=== PATIENT | male | born 1985 | race Two or more races ===

== ENCOUNTER 2016-10-01 23:51 | Observation (INO) | payer OTHER ==
--- NOTE | ~2016-10-01 | CT2 ---
[facility] A Service of [facility] RADIOLOGY TEXT RESULTS PATIENT: JESUS MCLEOD LOCATION: C4 473-01 : 84 UNIT #: [id number] AGE: [address]: Isra Beltran SEX: M ORDER DR: [id number] [facility] [address] [facility] [address]. [place], [place] [address] [id number] MR#: [id number] Acc #: [id number] NAME: JESUS MCLEOD : 1985 SEX: M STUDY DATE/TIME: 10/02/2016 3:13 UNIT: CEDOF ROOM: 58867 STUDY DESCRIPTION: CT Abd and Pelv W Cont Attending Physician: Isra Beltran M.D. Ordering Physician: Harinder Main M.D. Primary Care Physician: No Primary Care Physician MEDICAL IMAGING REPORT This report is preliminary unless electronic signature is present EXAMINATION CT abdomen and pelvis with contrast. DATE 10/02/2016 HISTORY Generalized abdominal pain today with nausea and vomiting. COMPARISON None. PROCEDURE 5 mm axial images from lung bases to lesser trochanters after intravenous and enteric contrast administration. Sagittal and coronal reformatted images were obtained. This CT exam was performed with one or more of the following radiation dose reduction techniques: automatic exposure control, adjustment of mA and/or kV according to patient size, and iterative reconstruction. FINDINGS Abdomen findings: The appendix is abnormally thickened with mucosal enhancement and surrounding fat reticulation, consistent with the appearance of the acute appendicitis. No periappendiceal abscess is seen. Lung bases are clear. The liver, gallbladder, spleen, pancreas, adrenals and kidneys are within normal limits. Pelvis findings: Urinary bladder, prostate and rectum are normal. No pelvic adenopathy or free fluid. IMPRESSION 1. Acute appendicitis without evidence of perforation or periappendiceal [facility] A Service [facility] RADIOLOGY TEXT RESULTS PATIENT: JESUS MCELOD LOCATION: C4 473-01 : 84 UNIT #: [id number] AGE: [address]: Isra Beltran SEX: M ORDER DR: abscess at this time. Findings called to the [facility] emergency room at the time of this dictation. Dictated by... Monika Copeland M.D. THIS IS AN ELECTRONICALLY VERIFIED REPORT Monika Copeland M.D. at 10/02/2016 9:55 PM LYNDON/bridgette TD: 10/02/2016 06:55 JOB #: [id number] MEDICAL IMAGING REPORT Page 1 of 1 COPY
--- NOTE | ~2016-10-01 | CO ---
Unit #: [id number] #: [id number] Patient: JESUS MCLEOD [id number] [address] [address] [id number] MR#: [id number] NAME: JESUS MCLEOD ROOM: [facility] Age: 31 Sex: M Admission Date: 10/02/2016 : 1985 Attending Physician: Isra Beltran M.D. Consultation Date: 10/02/2016 CONSULTATION REPORT REASON FOR CONSULTATION 1. Abdominal pain. 2. Acute appendicitis. CONSULTING PHYSICIAN [facility] and [facility] physicians. Thank you very much for asking us to see Mr. Blankenship. HISTORY OF PRESENT ILLNESS He is a 31-year-old [place] male. We spoke with him through call center recruiter, #[id number]. The patient states he may have developed abdominal pain 24 hours ago. It was first diffuse and became more localized in the right lower quadrant. He came to the emergency room for further evaluation. At that time, he had a CT scan performed, which was consistent with acute appendicitis without perforation. No other intraabdominal process was found. He denies any GI bleeding. No or pulmonary symptoms. No fevers or chills. ALLERGIES No known medical allergies. MEDICATIONS Omeprazole. PAST SURGICAL HISTORY None. PAST MEDICAL HISTORY Unremarkable. SOCIAL HISTORY No tobacco or alcohol use. REVIEW OF SYSTEMS Negative except for above. IMMUNIZATION STATUS Unknown. FAMILY HISTORY Noncontributory. PHYSICAL EXAMINATION Unit #: [id number] #: [id number] Patient: JESUS MCLEOD GENERAL: Well-developed, well-nourished, black male. Awake, alert, and oriented. VITAL SIGNS: Temperature 98.5, pulse 68, respirations 18, and blood pressure 122/80. NECK: Supple. No thyromegaly or adenopathy. BACK: No CVA or spinous tenderness. HEENT: Sclerae not icteric. ABDOMEN: Flat, soft, and nontender on the left side, but tender in the right lower quadrant at McBurney point with some guarding, but no rebound or peritoneal signs. EXTREMITIES: No calf tenderness. No erythema. DIAGNOSTIC STUDIES LABORATORY RESULTS: Reveal the patient to have a white count of 11.8, hemoglobin 15.2, and hematocrit 45.3. His CMP showed a sodium of 133, potassium 3.4 with the rest was normal including normal liver function studies. Urinalysis was negative nitrites, negative leukocyte esterase. IMPRESSION A 31-year-old [place]ic male with right lower quadrant pain and acute appendicitis on CT scan of the abdomen and pelvis. We have recommended laparoscopic appendectomy, possible open appendectomy. All the risks and benefits have been fully explained to the patient in detail including the risk of bleeding, infection, an open procedure more extensive or different procedure, transfer, as well as other risks. He understands completely and requests to proceed. Dictated by... Luis Caldwell/loren TD: 10/02/2016 07:47 JOB #: [id number] CC: [facility] CONSULTATION REPORT Page 1 of 1 X Narayan Long MD X CONSULTATION REPORT
--- NOTE | ~2016-10-01 | OR ---
Unit #: [id number] #: [id number] Patient: JESUS MCLEOD [id number] [address] [address] [id number] [place] MR#: [id number] NAME: JESUS MCLEOD ROOM: 473 Date of Procedure: 10/02/2016 Admission Date: 10/02/2016 Surgeon: Darío Leigh M.D. : 1985 Attending Physician: Isra Beltran M.D. OPERATIVE REPORT PREOPERATIVE DIAGNOSIS Appendicitis. POSTOPERATIVE DIAGNOSIS Appendicitis. PROCEDURE PERFORMED Laparoscopic appendectomy. DIRECTOR OF BLOOD None. ANESTHESIA General anesthesia. ESTIMATED BLOOD LOSS Minimal. IV FLUIDS 800 crystalloid. COMPLICATIONS None. INDICATIONS FOR PROCEDURE The patient is a 31-year-old with appendicitis. He presents for laparoscopic appendectomy. DESCRIPTION OF PROCEDURE The patient was taken to the operating theater and placed in supine position. General anesthesia was induced. The abdomen was prepped and draped. An infraumbilical incision was then made. A Veress needle was placed intra-abdominally. The abdomen was insufflated to 15 mmHg with CO2. Under direct vision, I placed a 5 mm at the umbilicus. The patient was placed in Trendelenburg. I then placed a right lower quadrant 10 mm, left lower quadrant 5 mm. The patient was found to have acute appendicitis non perforated. I mobilized the cecum as well as the appendix from its retroperitoneal attachments. A PARESH stapler was then fired across the base of the appendix as well as the mesoappendix. Hemostasis was adequate. I removed the appendix via the 10 mm port site. I then removed the ports under direct vision and closed the fascia with 0 Vicryl and skin with 4-0 Vicryl. The patient tolerated the procedure well Unit #: [id number] #: [id number] Patient: JESUS MCLEOD and sent to recovery room in good condition. Dictated by... Luis Pro/loren TD: 10/02/2016 12:49 JOB #: [id number] OPERATIVE REPORT Page 1 of 1 X Darío Leigh MD PROCEDURE OPERATIVE NOTE
[2016-10-02 01:32] LABS: BASOPHIL% 0.2 % (0-2.5); DIFF IND NO; HEMATOCRIT 45.3 % (38.0-50.0); HEMOGLOBIN 15.2 gm/dL (13.0-16.0); LYMPHOCYTE# 0.6 X10e3 (1.0-3.5); LYMPHOCYTE% 5.5 % (17.0-45.0); MEAN CELL VOLUME 85.5 FL (83-96); MEAN CORPUSCULAR HEMOGLOBIN 28.7 PG (28-34); MEAN CORPUSCULAR HGB CONC 33.6 g/dL (30-36); MONOCYTE# 0.4 X10e3 (0-1.0); MONOCYTE% 3.3 % (3.0-12.0); NEUTROPHIL# 10.7 X10e3 (1.5-7.1); PLATELET COUNT 155 X10e3 (140-420); RED BLOOD COUNT 5.29 X10e (3.90-5.60); WHITE BLOOD COUNT 11.8 X10e3 (4.0-10.5)
[2016-10-02 01:57] LABS: ALBUMIN SERUM 4.3 g/dL (3.5-5.0); BILIRUBIN, DIRECT 0.2 mg/dL (0.0-0.2); BILIRUBIN,INDIRECT 0.9 mg/dL (0.0-0.9); BILIRUBIN,TOTAL 1.1 mg/dL (0.2-2.0); CALCIUM SERUM 8.9 mg/dL (8.4-10.2); CREATININE SERUM 0.5 mg/dL (0.6-1.4); GLOM FILT RATE Estimated 143.4 mL/min (>60); POTASSIUM 3.4 mmol/L (3.5-5.1); PROTEIN TOTAL SERUM 7.3 g/dL (6.0-8.3)
[2016-10-02 02:29] LABS: URINE SOURCE CLEAN CATCH
[2016-10-02 02:34] LABS: URINE APPEARANCE CLEAR; URINE BILIRUBIN NEG (NEG); URINE BLOOD NEG (NEG); URINE COLOR YELLOW; URINE GLUCOSE NEG (NEG); URINE KETONE 1+ (NEG); URINE LEUKOCYTE ESTERASE NEG (NEG); URINE NITRATE NEG (NEG); URINE PH 8.5 (5-8); URINE PROTEIN NEG (NEG); URINE SPECIFIC GRAVITY 1.011 (1.003-1.035)
[2016-10-02 02:41] LABS: CULTURE INDICATED? NO
[2016-10-02] MEDS ORDERED: HYDROCODON-ACE1 EAC9 PO (14:07)
== END 2016-10-02 17:48 | disposition home or self-care (01) ==
LOC: CED 23:51 → CEDOF 10-02 03:55 → C4C 10-02 04:06 → CEDOF 10-02 04:06 → CED 10-02 04:06 → C4C 10-02 06:45 → CEDOF 10-02 06:45 → C4C 10-02 17:48
PROVIDERS: Emergency Medicine
DX: K35.3 Acute appendicitis with localized peritonitis (principal)
CPT/HCPCS: 36415; 74177; 80048; 80076; 81003; 82150; 83690; 85025; 88304; 96361; 96365; 96374; 96375; 99285; G0378; J0330; J2250; J2270; J2405; J2543; J3010; Q9967